=== PATIENT | male | born 1965 | race Two or more races ===

== ENCOUNTER → 2018-10-28 16:33 | Outpatient (CLI) | payer BC, SELFPAY ==
[2018-10-28 17:24] LABS: Absolute Lymphocyte Count 3.99 X10^3/ul (0.83-4.51); Basophil# 0.03 X10^3/uL; Basophil% 0.3 % (0-1); Eosinophil# 0.07 X10^3/uL; Eosinophils% 0.7 % (0-5); Hematocrit 40.3 % (40-54); Hemoglobin 13.3 g/dl (13.0-16.5); Lymphocyte # 3.99 X10^3/ul (4.0); Lymphocyte % 38.8 % (19-41); Mean Corpuscular Hgb 32.4 pg (27.0-32.0); Mean Corpuscular Volume 98.1 fL (80-94); Mean Platelet Vol. 10.5 fl (6.2-12.0); Monocyte# 1.14 X10^3/uL; Monocyte% 11.1 % (0-10); Neutrophil # 5.02 X10^3/uL (2.7-7.7); Neutrophil % 48.8 % (47-70); Platelet Count 295 K/mm3 (150-450); RBC Distribution Width CV 13.4 % (11.6-14.6); RBC Distribution Width SD 46.4 fl (35.1-43.9); Red Blood Count 4.11 M/mm3 (4.6-6.2); White Blood Count 10.3 K/mm3 (4.4-11.0)
[2018-10-28 17:26] LABS: POSITIVE COUNT NO; POSITIVE DIFFERENTIAL NO; POSITIVE MORPHOLOGY NO
[2018-10-28 17:51] LABS: AST(SGOT) 19 U/L (15-37); Alanine Aminotransfer ALT/SGPT 22 U/L (16-61); Albumin, Serum 3.9 g/dL (3.2-5.0); Alkaline Phosphatase 44 U/L (45-117); Anion Gap 7 (5-15); BUN 19 mg/dL (7-18); BUN/Creat Ratio 17.3 RATIO (10-20); Calcium,Total 8.6 mg/dL (8.5-10.1); Chloride 104 mmol/L (98-107); EST Glomerular Filtration Rate 74 mL/min (>60); Est Glom Filt Rate - Afr Amer 89 mL/min (>60); Glucose 68 mg/dL (74-106); PSA,Total - Annual Screen 0.74 ng/mL (0.00-4.00); Potassium 3.8 mmol/L (3.5-5.1); Protein, Total 7.9 g/dL (6.4-8.2); Sodium Level 139 mmol/L (136-145); Thyroid Stim Hormone (TSH) 1.96 uIU/mL (0.358-3.74)
[2018-10-30 11:37] LABS: Hep C Antibodies <0.1 s/co ratio (0.0-0.9)
== END ==
PROVIDERS: Family Provider Family Medicine Geriatric Medicine; PCP Family Medicine Geriatric Medicine; Referring Provider Family Medicine Geriatric Medicine; Visit Provider Family Medicine Geriatric Medicine
DX: Z00.00 Encounter for general adult medical examination without abnormal findings (principal); Z13.89 Encounter for screening for other disorder; Z12.5 Encounter for screening for malignant neoplasm of prostate; R53.83 Other fatigue
CPT/HCPCS: 36415; 80053; 84153; 84403; 84443; 85025; 86803; G0103

== ENCOUNTER → 2019-03-24 09:52 | Outpatient (CLI) | payer BC, SELFPAY ==
--- NOTE | 2019-03-24 10:00 | RAD_ITS ---
STUDY: X-RAY CHEST REASON FOR EXAM: Male, 53 years old. Chest discomfort for a few days TECHNIQUE: PA and lateral chest COMPARISON: None. FINDINGS: The lungs are clear and expanded. Normal cardiomediastinal silhouette, hugo and pleural margins. No acute osseous or upper abdominal process. RAD/Chest PA and Lateral IMPRESSION: No acute cardiopulmonary process. Electronically Signed: Presley Pereyra MD at 16:13 EDT Tel , Service support ,
== END ==
PROVIDERS: Family Provider Family Medicine Geriatric Medicine; PCP Family Medicine Geriatric Medicine; Referring Provider Family Medicine Geriatric Medicine; Visit Provider Family Medicine Geriatric Medicine
DX: R07.89 Other chest pain (principal)
CPT/HCPCS: 71046

== ENCOUNTER → 2020-10-11 08:43 | Outpatient (CLI) | payer BC, SELFPAY ==
[2020-10-11 09:58] LABS: Probe Check PASS; Specimen Processing Control PASS
== END ==
PROVIDERS: PCP Family Medicine Geriatric Medicine; Referring Provider Anesthesiology Pain Medicine; Visit Provider Anesthesiology Pain Medicine
DX: Z11.59 Encounter for screening for other viral diseases (principal)
CPT/HCPCS: 87635; C9803; U0002

== ENCOUNTER → 2023-01-01 | Outpatient (CLI) | payer BC, SELFPAY ==
[2023-01-01 17:17] LABS: Absolute Lymphocyte Count 3.85 X10^3/uL (0.83-4.51); Absolute Neutrophil Count 2.5 X10^3/uL (2.0-7.7); Basophil# 0.03 X10^3/uL; Basophil% 0.4 % (0-1); Eosinophils% 1.4 % (0-5); Hematocrit 41.5 % (40-54); Hemoglobin 13.4 g/dL (13.0-16.5); Lymphocyte # 3.85 X10^3/ul (0.83-4.51); Lymphocyte % 52.4 % (19-41); Mean Corp Hgb Conc 32.3 g/dL (32-36); Mean Corpuscular Hgb 32.2 pg (27.0-32.0); Mean Corpuscular Volume 99.8 fL (80-94); Mean Platelet Vol. 10.2 fl (6.2-12.0); Monocyte# 0.85 X10^3/uL; Monocyte% 11.6 % (0-10); NRBC Flagged by Analyzer 0 % (0-5); Neutrophil % 33.9 % (47-70); Platelet Count 302 K/mm3 (150-450); RBC Distribution Width CV 13.4 % (11.6-14.6); RBC Distribution Width SD 49.4 fl (35.1-43.9); Red Blood Count 4.16 M/mm3 (4.6-6.2); White Blood Count 7.4 K/mm3 (4.4-11.0)
[2023-01-01 18:13] LABS: Vitamin D,25 Hydroxy 27.2 ng/mL
[2023-01-01 18:23] LABS: ALB/GLOB Ratio 1.1 RATIO (0.9-2.4); AST(SGOT) 23 U/L (15-37); Alanine Aminotransfer ALT/SGPT 35 U/L (16-61); Albumin, Serum 4.1 g/dL (3.2-5.0); Alkaline Phosphatase 40 U/L (45-117); Anion Gap 6 (5-15); BUN 12 mg/dL (7-18); BUN/Creat Ratio 12.3 RATIO (10-20); Calcium,Total 9.2 mg/dL (8.5-10.1); Chloride 104 mmol/L (98-107); Creatinine, Serum 0.98 mg/dL (0.70-1.30); EST Glomerular Filtration Rate 83 mL/min (>60); Est Glom Filt Rate - Afr Amer 101 mL/min (>60); Globulin 3.6 g/dL (2.2-4.2); Glucose 116 mg/dL (74-106); PSA,Total - Annual Screen 0.86 ng/mL (0.00-4.00); Potassium 4.3 mmol/L (3.5-5.1); Protein, Total 7.7 g/dL (6.4-8.2); Sodium Level 138 mmol/L (136-145); Thyroid Stim Hormone (TSH) 3.59 uIU/mL (0.358-3.74)
== END | disposition home or self-care (01) ==
LOC: POLAB3 16:32
PROVIDERS: PCP Family Medicine Geriatric Medicine; Visit Provider Family Medicine Geriatric Medicine
DX: Z12.5 Encounter for screening for malignant neoplasm of prostate (principal); E55.9 Vitamin D deficiency, unspecified; R53.83 Other fatigue
CPT/HCPCS: 36415; 80053; 82306; 84153; 84443; 85025; G0103

== ENCOUNTER → 2024-06-18 | Outpatient (CLI) | payer BC, SELFPAY ==
[2024-06-18 14:46] LABS: Hepatitis B Surface Antibody Reactive; Hepatitis B Surface Antigen Non-Reactive (Nonreactive)
[2024-06-21 12:09] LABS: QNTFERON TB Mitogen Value > 10.00 IU/mL (.); QNTFERON TB Nil Value 0.09 IU/mL (.); QNTFERON TB1+ Ag Value 0.11 IU/mL (.); QNTFERON TB2+ Ag Value 0.11 IU/mL (.); QNTIFERON TB Positive Criteria Negative (Negative)
== END | disposition home or self-care (01) ==
LOC: LAB 13:40
PROVIDERS: PCP Family Medicine Geriatric Medicine; Referring Provider Anesthesiology Pain Medicine; Visit Provider Anesthesiology Pain Medicine
DX: Z13.9 Encounter for screening, unspecified (principal)
CPT/HCPCS: 36415; 86480; 86706; 87340

== ENCOUNTER → 2025-02-08 | Outpatient (CLI) | payer BC, SELFPAY ==
--- NOTE | 2025-02-08 08:11 | CT_ITS ---
PROCEDURE: LOW DOSE CT LUNG SCREENING 02/08/2025 REASON FOR EXAM: NICOTINE DEPENDANCE TECHNIQUE: Low Dose CT Lung screening was performed without contrast. Coronal and Sagittal reformats were generated. One or more dose reduction techniques were used (e.g., Automated exposure control, adjustment of the mA and/or kV according to patient size, use of iterative reconstruction technique). COMPARISON: None. RADIATION DOSE SUMMARY: CTDlvol: 3.02 mGy DLP: 103.82 mGycm FINDINGS: Note that evaluation of the vasculature, hugo, and soft tissues is limited in the absence of IV contrast. Heart/pericardium:Moderate multivessel coronary atherosclerosis and/or stents. Trace mitral annular calcification.. Aorta: Unremarkable. Pulmonary arteries: Unremarkable. Lymph nodes: Unremarkable. Lungs/pleura: Lingular greater than right middle lobe atelectasis/scarring. Fissural likely intrapulmonary lymph node along the minor fissure. A 3 mm subpleural right middle lobe nodule (series 2, image 166). 2 mm micronodule in the left lung base (image 196). Airways: Mild likely airway secretions within the inferior trachea. Chest wall: Unremarkable. Upper abdomen: Grossly unremarkable. Musculoskeletal: Multilevel spondylosis.. CT/Low Dose CT Lung Screening IMPRESSION: 1. Lung-RADS category: 2S(benign appearance or behavior, <1% chance of malignan cy); continue annual screening with LDCT. 2. Other clinically significant or potentially significant non-lung cancer find ings: Coronary arterial calcification moderate or severe. 3. Additional description as above. Recommendations per [employer]. Lung CT Screening Reporting and Data System (Lung-RADS) v. 2022 Reading Location: [id number]
== END | disposition home or self-care (01) ==
LOC: CT 08:03
PROVIDERS: PCP Family Medicine Geriatric Medicine; Referring Provider Family Medicine Geriatric Medicine; Visit Provider Family Medicine Geriatric Medicine
DX: Z12.2 Encounter for screening for malignant neoplasm of respiratory organs (principal); F17.290 Nicotine dependence, other tobacco product, uncomplicated
CPT/HCPCS: 71271

== ENCOUNTER → 2025-09-20 | Outpatient (CLI) | payer SELFPAY ==
--- NOTE | 2025-09-20 17:52 | MRI_ITS ---
PROCEDURE: SPINE CERVICAL (ROUTINE) 09/20/2025 REASON FOR EXAM: RADICULOPATHY TECHNIQUE: Procedure Code: MRISPC Modality: MR Procedure: SPINE CERVICAL (ROUTINE) Multiplanar and multisequence images were obtained without IV contrast administration. COMPARISON: None FINDINGS: Vertebrae: Cervical vertebral body heights are preserved. Bone marrow signal is unremarkable. Incidental rudimentary disc space at C2, a normal variant. Alignment: Straightening. No spondylolisthesis. Spinal Cord: Foramen magnum is clear. No abnormal cord signal. No syrinx or atrophy. C2-3: Cervical stenosis to 8.9 mm AP. CSF is seen around the cord. No abnormal cord signal. No significant disc disease or facet arthropathy. Exit foramina are clear. C3-4: Minimal, diffuse disc bulge. Minimal uncinate spurring. Central stenosis to 8.1 mm AP. CSF is seen around the cord. No abnormal cord signal. No significant facet arthropathy. Borderline narrowing of the exit foramina. C4-5: Minimal, diffuse disc bulge. Minimal uncinate spurring. Central stenosis to 8.1 mm AP. CSF is seen around the cord. No abnormal cord signal. Minimal facet arthropathy, [id number]. Borderline narrowing of the exit foramina. C5-6: Broad-based, diffuse disc osteophyte protrusion left paracentral extending to left extraforaminal. Central stenosis at the midline to 9.1 mm. The disc protrusion on the left deforms the anterior aspect of the cord effacing some of the CSF. Otherwise, CSF is seen around the remainder of the cord. Facets are unremarkable. Left exit foraminal narrowing is present from disc disease. C6-7: Mild loss of disc height. Moderate to severe diffuse disc osteophyte protrusion and uncinate spurring. Central stenosis to 8.1 mm. Effacement of the CSF anteriorly and right posteriorly. Bilateral exit foraminal narrowing mainly from disc osteophyte and uncinate spur. C7-T1: Normal MRI/Spine Cervical (Routine) IMPRESSION: 1. Straightening of the normal cervical lordosis. Consider spasm. 2. 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 This is exacerbated at some levels related to degenerative disc disease outlined above. This is greatest at C5/6 and C6/7. Reading Location: [id number]
== END | disposition home or self-care (01) ==
PROVIDERS: PCP Family Medicine Geriatric Medicine; Referring Provider Anesthesiology; Visit Provider Anesthesiology
DX: M54.12 Radiculopathy, cervical region (principal)
CPT/HCPCS: 72141